=== PATIENT | female | born 1950 ===

== ENCOUNTER 2017-09-16 04:54 | Emergency (ER) | payer MEDICARE ==
[~2017-09-16] VITALS: Ht 152.4 cm; Wt 75.3 kg
[~2017-09-16 04:54] MED LIST: ASPI325 PO; CYCL10 PO; Fish Oil 1,0001 EAC3 PO; LOSA25 PO; METF500C PO; METO25ER PO; Novolog100 UNIT/1; Simvastatin20 MG PO; TRAM50; TURMERIC500 M1
[2018-06-03] MEDS ORDERED: CYCL10 PO (09:12)
[2018-06-03] MEDS ORDERED: NOVOLIN 70100 UNIT/1 SC (09:15)
[2018-06-04] MEDS ORDERED: ASPI81CH PO (10:44)
[2018-06-04] MEDS ORDERED: Protonix40 MG PO (10:50)
[2018-06-28] MEDS ORDERED: HYOS.125 SL (23:26)
== END 2017-09-16 08:11 | disposition home or self-care (01) ==
LOC: ER 04:54
DX: S89.92XA Unspecified injury of left lower leg, initial encounter (principal); Z95.1 Presence of aortocoronary bypass graft; Z90.710 Acquired absence of both cervix and uterus; Z96.643 Presence of artificial hip joint, bilateral; X50.1XXA Overexertion from prolonged static or awkward postures, initial encounter; Z91.09 Other allergy status, other than to drugs and biological substances; Z79.899 Other long term (current) drug therapy; Z79.4 Long term (current) use of insulin; Z79.82 Long term (current) use of aspirin
CPT/HCPCS: 29505; 73562-LT; 99283

== ENCOUNTER → 2017-11-28 | Outpatient (CLI) | payer MEDICARE ==
[~2017-11-28] MED LIST changes: +ASPI325; -ASPI325 PO; +LOSA25; -LOSA25 PO; +METF500; -METF500C PO; +METO25ER; -METO25ER PO; +Simvastatin20 MG; -Simvastatin20 MG PO
== END ==
LOC: LAB 13:24 → LAB SHORT 13:24
DX: N39.0 Urinary tract infection, site not specified (principal)
CPT/HCPCS: 87077; 87086; 87186

== ENCOUNTER → 2019-10-14 | Outpatient (CLI) | payer MEDICARE ==
[~2019-10-14] MED LIST changes: -ASPI325; +ASPI325 PO; +ASPI81CH PO; +HYOS.125 SL; -LOSA25; +LOSA25 PO; -METF500; +METF500C PO; -METO25ER; +METO25ER PO; +NOVOLIN 70100 UNIT/1 SC; +Protonix40 MG PO; -Simvastatin20 MG; +Simvastatin20 MG PO
== END | disposition home or self-care (01) ==
LOC: LAB 12:33 → LAB SHORT 12:33
DX: R10.9 Unspecified abdominal pain (principal)
CPT/HCPCS: 87077; 87086; 87186

== ENCOUNTER 2019-12-03 08:53 | Emergency (ER) | payer MEDICARE, OTHER ==
[~2019-12-03] VITALS: Ht 152.4 cm; Wt 68.0 kg
[~2019-12-03 08:53] MED LIST changes: +CLOP75 PO
[2019-12-03] MEDS ORDERED: Robaxin-750750 MG PO (10:12)
[2019-12-03] MEDS ORDERED: Norco 5-325 Ta1 EACH PO (10:12)
== END 2019-12-03 10:18 | disposition home or self-care (01) ==
LOC: ER 08:53
DX: M77.9 Enthesopathy, unspecified (principal); E11.9 Type 2 diabetes mellitus without complications; I10 Essential (primary) hypertension; E78.5 Hyperlipidemia, unspecified; I25.2 Old myocardial infarction; Z91.09 Other allergy status, other than to drugs and biological substances; Z79.899 Other long term (current) drug therapy; Z79.01 Long term (current) use of anticoagulants; Z79.4 Long term (current) use of insulin; Z79.82 Long term (current) use of aspirin; Z86.73 Personal history of transient ischemic attack (TIA), and cerebral infarction without residual deficits
CPT/HCPCS: 73030; 99283-25

== ENCOUNTER 2019-12-04 05:09 | Emergency (ER) | payer MEDICARE, OTHER ==
[~2019-12-04] VITALS: Ht 165.1 cm; Wt 68.0 kg
[~2019-12-04 05:09] MED LIST changes: +Norco 5-325 Ta1 EACH PO; +Robaxin-750750 MG PO
== END 2019-12-04 06:27 | disposition home or self-care (01) ==
LOC: ER 05:09
DX: M25.512 Pain in left shoulder (principal); Z86.73 Personal history of transient ischemic attack (TIA), and cerebral infarction without residual deficits; Z91.09 Other allergy status, other than to drugs and biological substances; Z79.899 Other long term (current) drug therapy
CPT/HCPCS: 99282